=== PATIENT | female | born 1975 | race Caucasian/White ===

== ENCOUNTER → 2021-11-18 | Outpatient (REF) | payer OTHER | LOC: M LAB REF 14:47 | PROVIDERS: ATTEND Physician Assistant | DX: R05.9 Cough, unspecified (principal); R53.83 Other fatigue ==

== ENCOUNTER → 2022-09-24 | Outpatient (CLI) | payer OTHER | LOC: M WUC 13:11 | PROVIDERS: ATTEND Nurse Practitioner Family | DX: M25.571 Pain in right ankle and joints of right foot (principal); R93.6 Abnormal findings on diagnostic imaging of limbs ==

== ENCOUNTER → 2025-04-30 | Outpatient (REF) ==
[~2025-04-30] MED LIST: ESTR62CR; FAMO1TAB11 PO; HYDR-3363 PO; HYDR-3490 PO; LOSA50TA28 PO; METF-838 PO; MONT10TA97 PO; SERT25TA21 PO; VAGI10TA PO; VITA100093 PO
== END ==
LOC: M LAB 15:39
PROVIDERS: ATTEND Family Medicine
DX: Z02.9 Encounter for administrative examinations, unspecified (principal)